=== PATIENT | female | born 1995 | race Caucasian/White ===

== ENCOUNTER 2022-06-22 11:32 | Emergency (ER) | payer BC, MEDICAID ==
[2022-06-22 13:37] LABS: CORONAVIRUS COVID-19 NAA POSITIVE (NEGATIVE)
[2022-06-22] MEDS: Penicillin G Benzathine 1,200,000 Units/2 ML Syringe IM ONE (13:50)
== END 2022-06-22 14:15 | disposition home or self-care (01) ==
LOC: KA.ED 11:32
DX: U07.1 COVID-19 (principal); J02.0 Streptococcal pharyngitis
CPT/HCPCS: 87430; 96372; 99284; J0561; U0002

== ENCOUNTER 2022-06-24 15:50 | Emergency (ER) | payer MEDICAID | END 2022-06-24 17:25 | disposition home or self-care (01) | LOC: KA.ED 15:50 | DX: H65.03 Acute serous otitis media, bilateral (principal); J44.9 Chronic obstructive pulmonary disease, unspecified; E11.9 Type 2 diabetes mellitus without complications; Z90.49 Acquired absence of other specified parts of digestive tract | CPT/HCPCS: 99282; 99283 ==

== ENCOUNTER 2022-08-08 16:43 | Emergency (ER) | payer MEDICAID, OTHER ==
[2022-08-08] MEDS ORDERED: Lidocaine 1% 5 ML VIAL INJECT ONE (17:25)
== END 2022-08-08 17:50 | disposition home or self-care (01) ==
LOC: KA.ED 16:43
DX: S61.211A Laceration without foreign body of left index finger without damage to nail, initial encounter (principal); W23.1XXA Caught, crushed, jammed, or pinched between stationary objects, initial encounter; Y99.0 Civilian activity done for income or pay
CPT/HCPCS: 12002; 73140-F6; 99283